=== PATIENT | female | born 1965 | race Caucasian/White ===

== ENCOUNTER 2024-08-07 17:32 | Inpatient (IN) | payer OTHER ==
[~2024-08-07] VITALS: Ht 165.1 cm; Wt 68.0 kg
[~2024-08-07 17:32] MED LIST: CITALOPRAM HBR20 MG; FOLIC ACID1 MG; GABAPENTIN300 MG; METFORMIN HCL500 M1; METHOTREXATE2.5 MG; NIASPAN1000 MG; PANTOPRAZOLE SO40 MG PO; PRAVASTATIN SOD20 MG; RANITIDINE HCL150 MG; TRILIPIX135 MG; VITAMIN D5000 UNIT; WARFARIN SODIU2.5 MG; WARFARIN SODIUM5 MG
[2024-08-07 18:33] LABS: BASOPHILS % 0.4 % (0.0-1.0); EOSINOPHILS # (AUTO) 0.1 (0.0-0.4); EOSINOPHILS % 0.5 % (0.0-6.0); HEMATOCRIT 41.5 % (34.2-44.1); HEMOGLOBIN 13.2 g/dL (12.0-16.0); LYMPHOCYTES # (AUTO) 1.5 (1.0-3.2); LYMPHOCYTES % 15.7 % (18.0-39.1); MEAN CORPUSCULAR HEMOGLOBIN 31.1 pg (28-32); MEAN CORPUSCULAR HGB CONC 31.8 g/dL (31-35); MEAN CORPUSCULAR VOLUME 97.6 fL (81-99); MONOCYTES # (AUTO) 0.8 (0.2-0.8); MONOCYTES % 7.9 % (4.4-11.3); NEUTROPHILS # (AUTO) 7.3 (2.1-6.9); NEUTROPHILS % 75.1 % (38.7-80.0); PLATELET COUNT 165 x10e3/uL (140-360); RED BLOOD COUNT 4.25 x10e6/uL (3.6-5.1); RED CELL DISTRIBUTION WIDTH 13.6 % (11.7-14.4); WHITE BLOOD COUNT 9.68 x10e3/uL (4.8-10.8)
[2024-08-07 18:52] LABS: ALANINE AMINOTRANSFERASE 26 IU/L (0-55); ALBUMIN/GLOBULIN RATIO 1.2 (0.8-2.0); ALKALINE PHOSPHATASE 64 IU/L (40-150); ANION GAP 15.6 mmol/L (8-16); BILIRUBIN,TOTAL 0.5 mg/dL (0.2-1.2); BLOOD UREA NITROGEN 17 mg/dL (7-26); BUN/CREATININE RATIO 17 (6-25); CARBON DIOXIDE 17 mmol/L (22-29); CHLORIDE 110 mmol/L (98-107); CREATINE KINASE 97 IU/L (29-168); EST GLOMERULAR FILTRATION RATE 64 ML/MIN (>=60); GLUCOSE 90 mg/dL (74-118); POTASSIUM 3.6 mmol/L (3.5-5.1); SODIUM 139 mmol/L (136-145); TOTAL PROTEIN 7.4 g/dL (6.5-8.1)
[2024-08-07 18:58] LABS: TROPONIN I < 0.001 ng/mL (0-0.300)
[2024-08-07] MEDS ORDERED: IOPAMIDOL 370 MG/ML 100 ML INFUS..BTL INJ ONE (19:15)
[2024-08-07] MEDS: ONDANSETRON HCL INJ 2MG/ML 2ML 2 MG/ML VIAL IV STA (19:47)
[2024-08-07] MEDS: Morphine 4mg INJECTION 4 MG/ML INJ IV ONE (19:48)
[2024-08-07] MEDS: INSULIN REGULAR, HUMAN 100 UNIT/1 ML SQ SCH (21:25)
[2024-08-07] MEDS: SODIUM CHLORIDE 0.9% 1000ML 1,000 ML IV SCH (22:10)
[2024-08-07 23:15] VITALS: PULSE 83; RESP 18; O2SAT 99
[2024-08-08] VITALS (9 sets, daily range): BP systolic 122–136; BP diastolic 71–80; PULSE 71–84; RESP 16–20; TEMP 97.6–98.8; O2SAT 98–100
[2024-08-08] MEDS: Morphine 4mg INJECTION 4 MG/ML INJ IV PRN (00:11)
[2024-08-08] MEDS: ONDANSETRON HCL INJ 2MG/ML 2ML 2 MG/ML VIAL IV PRN (00:11)
[2024-08-08 05:34] LABS: BASOPHILS # (AUTO) 0.1 (0.0-0.1); BASOPHILS % 0.7 % (0.0-1.0); EOSINOPHILS % 0.3 % (0.0-6.0); HEMATOCRIT 40.2 % (34.2-44.1); HEMOGLOBIN 12.5 g/dL (12.0-16.0); LYMPHOCYTES # (AUTO) 1.6 (1.0-3.2); LYMPHOCYTES % 21.5 % (18.0-39.1); MEAN CORPUSCULAR HEMOGLOBIN 30.9 pg (28-32); MEAN CORPUSCULAR HGB CONC 31.1 g/dL (31-35); MEAN CORPUSCULAR VOLUME 99.5 fL (81-99); MONOCYTES # (AUTO) 0.6 (0.2-0.8); MONOCYTES % 8.7 % (4.4-11.3); NEUTROPHILS % 68.5 % (38.7-80.0); PLATELET COUNT 153 x10e3/uL (140-360); RED BLOOD COUNT 4.04 x10e6/uL (3.6-5.1); RED CELL DISTRIBUTION WIDTH 13.8 % (11.7-14.4); WHITE BLOOD COUNT 7.25 x10e3/uL (4.8-10.8)
[2024-08-08 06:08] LABS: ALBUMIN 3.6 g/dL (3.5-5.0); ALBUMIN/GLOBULIN RATIO 1.1 (0.8-2.0); ANION GAP 15.3 mmol/L (8-16); BILIRUBIN,TOTAL 0.5 mg/dL (0.2-1.2); CALCIUM 9.3 mg/dL (8.4-10.2); CREATININE, SERUM 1.03 mg/dL (0.57-1.11); POTASSIUM 4.3 mmol/L (3.5-5.1)
[2024-08-08] MEDS: HYDROMORPHONE 1MG/1ML INJ IV STA (11:12)
[2024-08-08] MEDS: DEXTROSE 50% SYRINGE 50 ML IV STA (11:15)
[2024-08-08 12:03] LABS: INR 1.12
[2024-08-08] MEDS: DEXTROSE 50% SYRINGE 50 ML IV PRN (15:49)
[2024-08-08] MEDS: HYDROMORPHONE 1MG/1ML INJ IV PRN (17:39)
[2024-08-09] VITALS (13 sets, daily range): BP systolic 112–132; BP diastolic 71–80; PULSE 82–97; RESP 16–20; TEMP 96.7–98.7; O2SAT 95–100
[2024-08-09] MEDS ORDERED: BUPIVACAINE HCL 0.5% INJ 30 ML VIAL INJ ONE (08:37)
[2024-08-09] MEDS ORDERED: SUGAMMADEX SODIUM 200 MG/2 ML VIAL IV ONE (09:25)
[2024-08-09] MEDS ORDERED: NALOXONE HCL INJ 0.4 MG/ML AMP IV PRN (09:30)
[2024-08-09] MEDS ORDERED: DIPHENHYDRAMINE HCL 25 MG CAP PO PRN (09:30)
[2024-08-09] MEDS ORDERED: KETOROLAC TROMETHAMINE 30 MG/ML VIAL IV PRN (09:30)
[2024-08-09] MEDS ORDERED: ACETAMINOPHEN 1000 MG/100 ML IV PRN (09:30)
[2024-08-09] MEDS: DEXTROSE 5%/LACTATED RINGERS 1,000 ML IV SCH (10:11)
[2024-08-09] MEDS: ONDANSETRON HCL INJ 2MG/ML 2ML 2 MG/ML VIAL IV PRN (10:39)
[2024-08-09] MEDS: MORPHINE SULFATE 1 MG/ML 30ML PCA IV PRN (11:24)
[2024-08-09] MEDS ORDERED: SUCCINYLCHOLINE CHLORIDE 20 MG/ML 10ML VIAL ONE (12:24)
[2024-08-09] MEDS ORDERED: KETOROLAC TROMETHAMINE 30 MG/ML VIAL ONE (12:24)
[2024-08-09] MEDS ORDERED: ROCURONIUM BROMIDE 10 MG/ML 5ML VIAL IV ONE (12:24)
[2024-08-09] MEDS ORDERED: LIDOCAINE HCL 2% LOCAL INJ 5 ML SDV VIAL INJ ONE (12:24)
[2024-08-09] MEDS ORDERED: ONDANSETRON HCL INJ 2MG/ML 2ML 2 MG/ML VIAL ONE (12:24)
[2024-08-09] MEDS ORDERED: METOCLOPRAMIDE HCL 10 MG/2ML VIAL ONE (12:24)
[2024-08-09] MEDS ORDERED: PROPOFOL IV EMULSION 10 MG/ML 20 ML VIAL ONE (12:24)
[2024-08-09] MEDS ORDERED: SEVOFLURANE INHAL SOLN 250 ML PEN BTL ONE (12:24)
[2024-08-09] MEDS ORDERED: DEXAMETHASONE SOD PHOS INJ 4 MG/ML SDV ONE (12:24)
[2024-08-09] MEDS ORDERED: Morphine 10mg syringe 10 MG/ML INJ ONE (19:47)
[2024-08-09] MEDS ORDERED: FENTANYL CITRATE/PF 100MCG/2 ML INJ ONE (19:47)
[2024-08-10] VITALS (10 sets, daily range): BP systolic 116–147; BP diastolic 73–93; PULSE 75–95; RESP 16–20; TEMP 98.4–99.6; O2SAT 95–100
[2024-08-10] MEDS ORDERED: BISACODYL 10 MG SUPP PR PRN (05:30)
[2024-08-10 07:13] LABS: ANION GAP 14.3 mmol/L (8-16); CALCIUM 7.9 mg/dL (8.4-10.2); CREATININE, SERUM 0.79 mg/dL (0.57-1.11)
[2024-08-10 07:17] LABS: POTASSIUM 3.3 mmol/L (3.5-5.1)
[2024-08-10] MEDS ORDERED: HYDROXYZINE HCL25 MG PO (07:58)
[2024-08-10] MEDS ORDERED: TOPIRAMATE25 MG PO (07:59)
[2024-08-10] MEDS ORDERED: CYMBALTA20 MG PO (08:00)
[2024-08-10] MEDS ORDERED: OMEPRAZOLE40 MG PO (08:00)
[2024-08-10] MEDS ORDERED: JARDIANCE10 MG PO (08:06)
[2024-08-10] MEDS ORDERED: BUPROPION XL150 MG PO (08:07)
[2024-08-10] MEDS ORDERED: ROSUVASTATIN CA20 MG PO (08:08)
[2024-08-10] MEDS ORDERED: COMPAZINE25 MG PO (08:09)
[2024-08-10] MEDS ORDERED: XARELTO10 MG PO (08:09)
[2024-08-10] MEDS: POLYETHYLENE GLYCOL 3350 17 GM PACK PO SCH (08:17)
[2024-08-10] MEDS: SENNOSIDES 8.6 MG TAB PO SCH (08:17)
[2024-08-10] MEDS: DOCUSATE SODIUM 100 MG CAP PO SCH (08:17)
[2024-08-10 08:20] LABS: BASOPHILS % 0.4 % (0.0-1.0); EOSINOPHILS # (AUTO) 0.1 (0.0-0.4); EOSINOPHILS % 1.2 % (0.0-6.0); HEMATOCRIT 34.3 % (34.2-44.1); HEMOGLOBIN 10.5 g/dL (12.0-16.0); LYMPHOCYTES # (AUTO) 1.5 (1.0-3.2); LYMPHOCYTES % 19.6 % (18.0-39.1); MEAN CORPUSCULAR HEMOGLOBIN 30.8 pg (28-32); MEAN CORPUSCULAR HGB CONC 30.6 g/dL (31-35); MEAN CORPUSCULAR VOLUME 100.6 fL (81-99); MONOCYTES # (AUTO) 1.1 (0.2-0.8); MONOCYTES % 13.9 % (4.4-11.3); NEUTROPHILS % 64.5 % (38.7-80.0); PLATELET COUNT 122 x10e3/uL (140-360); RED BLOOD COUNT 3.41 x10e6/uL (3.6-5.1); RED CELL DISTRIBUTION WIDTH 13.8 % (11.7-14.4); WHITE BLOOD COUNT 7.69 x10e3/uL (4.8-10.8)
[2024-08-10] MEDS ORDERED: WARFARIN SOD 5 MG TAB PO SCH (09:00)
[2024-08-10] MEDS ORDERED: PRAVASTATIN 20 MG TAB PO SCH (09:00)
[2024-08-10] MEDS ORDERED: CITALOPRAM HYDROBROMIDE 20 MG TAB PO SCH (09:00)
[2024-08-10] MEDS: RIVAROXABAN 10 MG TABLET PO SCH (10:12)
[2024-08-10] MEDS: CRESTOR 10MG PO SCH (20:49)
[2024-08-10] MEDS ORDERED: RIZATRIPTAN10 MG PO (20:56)
[2024-08-10] MEDS ORDERED: NON-FORMULARY MEDICATION (Rosuvastatin Calcium 20 MG) PO SCH (21:00)
[2024-08-10] MEDS: PANTOPRAZOLE SOD 40 MG TABEC PO SCH (22:15)
[2024-08-10] MEDS: TOPIRAMATE 100 MG TAB PO SCH (22:16)
[2024-08-11] VITALS (10 sets, daily range): BP systolic 130–145; BP diastolic 79–89; PULSE 75–93; RESP 16–18; TEMP 97.7–99.1; O2SAT 96–100
[2024-08-11 06:47] LABS: BASOPHILS % 0.6 % (0.0-1.0); EOSINOPHILS # (AUTO) 0.3 (0.0-0.4); EOSINOPHILS % 3.9 % (0.0-6.0); HEMATOCRIT 34.1 % (34.2-44.1); HEMOGLOBIN 10.3 g/dL (12.0-16.0); LYMPHOCYTES # (AUTO) 1.5 (1.0-3.2); LYMPHOCYTES % 22.2 % (18.0-39.1); MEAN CORPUSCULAR HEMOGLOBIN 30.3 pg (28-32); MEAN CORPUSCULAR HGB CONC 30.2 g/dL (31-35); MEAN CORPUSCULAR VOLUME 100.3 fL (81-99); MONOCYTES # (AUTO) 0.8 (0.2-0.8); MONOCYTES % 11.6 % (4.4-11.3); NEUTROPHILS # (AUTO) 4.2 (2.1-6.9); NEUTROPHILS % 61.3 % (38.7-80.0); PLATELET COUNT 126 x10e3/uL (140-360); RED CELL DISTRIBUTION WIDTH 13.6 % (11.7-14.4)
[2024-08-11 07:06] LABS: ANION GAP 13.1 mmol/L (8-16); CALCIUM 8.4 mg/dL (8.4-10.2); CREATININE, SERUM 0.78 mg/dL (0.57-1.11); MAGNESIUM 1.9 MG/DL (1.3-2.1)
[2024-08-11 07:13] LABS: POTASSIUM 3.1 mmol/L (3.5-5.1)
[2024-08-11] MEDS: BUPROPION HCL 150 MG TABCR PO SCH (08:59)
[2024-08-11] MEDS: DULOXETINE HCL 30 MG DELAYED RELEASE PO SCH (08:59)
[2024-08-11] MEDS: POTASSIUM CHLORIDE 20 MEQ TAB CR PO ONE (09:06)
[2024-08-11] MEDS: NYSTATIN SUSPENSION 5 ML UDC PO SCH (09:49)
[2024-08-11] MEDS: MORPHINE SULFATE 1 MG/ML 30ML PCA IV PRN (11:52)
[2024-08-11] MEDS: RIVAROXABAN 10 MG TABLET PO SCH (21:31)
[2024-08-12] VITALS (8 sets, daily range): BP systolic 127–138; BP diastolic 77–94; PULSE 79–90; RESP 16–20; TEMP 98.1–98.4; O2SAT 95–100
[2024-08-12 07:14] LABS: ANION GAP 13.3 mmol/L (8-16); CALCIUM 8.8 mg/dL (8.4-10.2); CREATININE, SERUM 0.81 mg/dL (0.57-1.11); PHOSPHORUS 1.8 MG/DL (2.3-4.7)
[2024-08-12 07:28] LABS: POTASSIUM 3.3 mmol/L (3.5-5.1)
[2024-08-12] MEDS: POTASSIUM CHLORIDE 10MEQ EA PO ONE (09:07)
[2024-08-12] MEDS: POTASSIUM PHOSPHATE 15 MM in SODIUM CHLORIDE 0.9% 250ML 250 ML IV ONE (10:22)
[2024-08-12] MEDS: HYDROCODONE/APAP 5MG-325MG TAB PO PRN (21:39)
[2024-08-13] VITALS: BP 134/82; PULSE 87; RESP 17; TEMP 98.2; O2SAT 100
[2024-08-13 04:00] VITALS: BP 128/83; PULSE 80; RESP 17; TEMP 98; O2SAT 100
[2024-08-13] MEDS ORDERED: SODIUM CHLORIDE FLUSH 10 ML SYR INJ PRN (06:45)
[2024-08-13 06:51] LABS: ANION GAP 13.6 mmol/L (8-16); CALCIUM 8.9 mg/dL (8.4-10.2); CREATININE, SERUM 0.78 mg/dL (0.57-1.11); POTASSIUM 3.6 mmol/L (3.5-5.1)
[2024-08-13 07:35] VITALS: PULSE 85; RESP 17; O2SAT 96
[2024-08-13 07:36] VITALS: BP 124/81; PULSE 83; RESP 17; TEMP 98.1; O2SAT 100
[2024-08-13 07:42] VITALS: BP 124/81; PULSE 83; RESP 17; TEMP 98.1; O2SAT 100
[2024-08-13 11:21] VITALS: BP 125/82; PULSE 87; RESP 18; TEMP 98.3; O2SAT 99
[2024-08-13] MEDS ORDERED: NYSTATIN100000 UNI PO (11:45)
[2024-08-13] MEDS ORDERED: SENOKOT8.6 MG PO (11:45)
[2024-08-13] MEDS ORDERED: ACETAMINOPHEN-1 EAC4 PO (11:45)
[2024-08-13] MEDS ORDERED: ONDANSETRON ODT4 MG PO (11:45)
== END 2024-08-13 13:00 | disposition home or self-care (01) | DRG 330 ==
LOC: ER 17:48 → ERHOLD 21:18 → MED/SURG3 08-08 13:06
PROVIDERS: ADMIT Internal Medicine; ATTEND Internal Medicine
PROC: 0DQH0ZZ Repair Cecum, Open Approach (ICD-10-PCS; 2024-08-09)
PROC: 0DSH0ZZ Reposition Cecum, Open Approach (ICD-10-PCS; principal; 2024-08-09 08:36)
PROC: 0WJG4ZZ Inspection of Peritoneal Cavity, Percutaneous Endoscopic Approach (ICD-10-PCS; 2024-08-09 08:36)
DX: K56.2 Volvulus (principal); D68.51 Activated protein C resistance; E11.9 Type 2 diabetes mellitus without complications; E78.49 Other hyperlipidemia; E87.6 Hypokalemia; F41.9 Anxiety disorder, unspecified; K12.1 Other forms of stomatitis; T38.3X6A Underdosing of insulin and oral hypoglycemic [antidiabetic] drugs, initial encounter; Z91.128 Patient's intentional underdosing of medication regimen for other reason; Z79.4 Long term (current) use of insulin; Z79.84 Long term (current) use of oral hypoglycemic drugs; Z79.01 Long term (current) use of anticoagulants; Z86.711 Personal history of pulmonary embolism; Z86.718 Personal history of other venous thrombosis and embolism; Z90.10 Acquired absence of unspecified breast and nipple; Z85.3 Personal history of malignant neoplasm of breast
CPT/HCPCS: 36415; 36568; 36569; 71045; 74177; 80048; 80053; 82550; 82948; 83690; 83735; 84100; 84484; 85025; 85610; 93005; 94799; 99285; J0330; J1100; J1171; J1885; J2003; J2270; J2405; J2470; J2543; J2765; J7030; J7050; J7799; Q9967